=== PATIENT | female | born 1975 | race Caucasian/White ===

== ENCOUNTER 2017-05-06 13:01 | Emergency (ER) | payer BC ==
[~2017-05-06] VITALS: Ht 154.9 cm; Wt 71.5 kg
[~2017-05-06 13:01] MED LIST: BENTYL10 MG PO; CIPRO500 MG PO; DIFLUCAN150 MG PO; DILAUDID2 MG PO; MIRALAX255 GM PO; MOTRIN800 MG PO; NORCO 5/3251 TABLET PO; PERCOCET 5/31 TABLET PO; SYNTHROID88 MCG PO; ZOFRAN ODT8 MG PO; ZOFRAN4 MG PO
[2017-05-06 13:36] LABS: ADD MIUA? YES; BILIRUBIN NEGATIVE; BLOOD NEGATIVE; COLOR YELLOW ((YELLOW)); GLUCOSE (STRIP) NEGATIVE; KETONES NEGATIVE; LEUKOCYTES NEGATIVE; NITRITE NEGATIVE; PROTEIN (STRIP) NEGATIVE; SPECIFIC GRAVITY 1.009 (1.000-1.030); UROBILINOGEN 0.2 MG/DL (0.2-1.0)
[2017-05-06 13:39] LABS: BACTERIA 2+ /HPF; EPITHELIAL CELLS 1+ /HPF; MUCUS NONE SEEN /LPF; RED BLOOD CELLS NONE SEEN /HPF (0-5); UCUL ADDED? YES; WHITE BLOOD CELLS 0-5 /HPF (0-5)
[2017-05-06 15:36] LABS: EOSINOPHIL (%) 1.3 % (0-5); EOSINOPHIL COUNT 0.1 K/uL (0-0.3); HEMATOCRIT 39.3 % (36.0-46.0); IMMATURE GRANULOCYTE (%) 0.4 % (0.0-0.7); LYMPHOCYTE COUNT 1.4 K/uL (1.0-2.8); MCHC 34.6 G/DL (30.0-36.0); MCV 89.5 FL (83-99); MEAN PLAT.VOLUME 10.2 uM^3 (9.5-12.4); MONOCYTE (%) 5.8 % (3-12); MONOCYTE COUNT 0.5 K/uL (0-0.8); NEUTROPHIL (%) 75.3 % (45-76); PLATELET COUNT 298 K/uL (156-360); RBC DIS.WIDTH-CV 12.3 % (11.8-14.6); RBC DIS.WIDTH-SD 40.3 % (39-53); RED BLOOD COUNT 4.39 M/uL (3.80-5.20)
[2017-05-06 15:44] LABS: CHLORIDE 106 mEq/L (99-109); POTASSIUM 3.9 mEq/L (3.7-5.4); SODIUM 137 mEq/L (136-147)
[2017-05-06 15:46] LABS: GLUCOSE 92 mg/dL (70-99)
[2017-05-06 15:48] LABS: ANION GAP 8 MEQ/L (2-14); TOTAL BILIRUBIN 0.4 mg/dL (0.0-1.0)
[2017-05-06 15:50] LABS: ALKALINE PHOSPHATASE 76 IU/L (3-129); GFR ESTIMATE (CALCULATED) > 59 mL/min/
[2017-05-06 15:51] LABS: UREA NITROGEN (BUN) 9 mg/dL (9-23)
[2017-05-06] MEDS ORDERED: NORCO 5/3251 TABLET PO (16:08)
[2017-05-06] MEDS ORDERED: KEFLEX500 MG PO (16:08)
[2017-05-06] MEDS ORDERED: DIFLUCAN150 MG PO (16:16)
[2017-05-06 16:50] VITALS: BP 100/74
== END 2017-05-06 16:51 | disposition home or self-care (01) ==
LOC: EME 13:01
PROVIDERS: Physician Assistant
DX: R30.0 Dysuria (principal); E03.9 Hypothyroidism, unspecified; Z90.710 Acquired absence of both cervix and uterus; Z88.2 Allergy status to sulfonamides
CPT/HCPCS: 80053; 81003; 85025; 87086; 99281; 99284; J1885

== ENCOUNTER 2018-04-16 12:35 | Inpatient (IN) | payer OTHER ==
[~2018-04-16] VITALS: Ht 157.5 cm; Wt 52.2 kg
[~2018-04-16 12:35] MED LIST changes: +KEFLEX500 MG PO
[2018-04-16 14:36] LABS: HEMOGLOBIN 11.7 G/DL (11.9-15.5); MCH 30.2 PG (29.0-34.0); MCHC 34.4 G/DL (30.0-36.0); MCV 87.9 FL (83-99); PLATELET COUNT 241 K/uL (156-360); RBC DIS.WIDTH-CV 13.5 % (11.8-14.6); RBC DIS.WIDTH-SD 43.3 % (39-53); RED BLOOD COUNT 3.87 M/uL (3.80-5.20); WHITE BLOOD COUNT 5.3 K/uL (4.1-10.2)
[2018-04-16 14:38] LABS: AMPHETAMINE NEGATIVE (500 ng/mL); BENZODIAZEPINES PRESUMPTIVE POSITIVE (150 ng/mL); COCAINE PRESUMPTIVE POSITIVE (150 ng/mL); METHAMPHETAMINE NEGATIVE (500 ng/mL); OPIATES (MORPHINE) NEGATIVE (100 ng/mL); PHENCYCLIDINE NEGATIVE (25 ng/mL); THC CANNABINOIDS NEGATIVE (50 ng/mL)
[2018-04-16 14:39] LABS: BARBITURATES NEGATIVE (200 ng/mL); BUPRENORPHINE PRESUMPTIVE POSITIVE (10 ng/mL); METHADONE PRESUMPTIVE POSITIVE (200 ng/mL); OXYCODONE NEGATIVE (100 ng/mL); PROPOXYPHENE NEGATIVE (300 ng/mL); TRICYCLIC ANTIDEPRESSANTS NEGATIVE (300 ng/mL)
[2018-04-16 14:47] LABS: CHLORIDE 104 mEq/L (99-109); POTASSIUM 3.1 mEq/L (3.7-5.4)
[2018-04-16 14:48] LABS: SODIUM 140 mEq/L (136-147)
[2018-04-16 14:50] LABS: GLUCOSE 83 mg/dL (70-99); TOTAL PROTEIN 6.8 g/dL (6.4-8.3)
[2018-04-16 14:52] LABS: TOTAL BILIRUBIN 0.7 mg/dL (0.0-1.0)
[2018-04-16 14:53] LABS: ALKALINE PHOSPHATASE 62 IU/L (3-129); SERUM ETHYL ALCOHOL < 10 mg/dL
[2018-04-16 14:54] LABS: CREATININE 0.8 mg/dL (0.6-1.3); GFR ESTIMATE (CALCULATED) > 59 mL/min/
[2018-04-16 14:55] LABS: AST (GOT) 18 IU/L (2-34); UREA NITROGEN (BUN) 12 mg/dL (9-23)
[2018-04-16 14:56] LABS: ALT (GPT) 11 IU/L (3-49)
[2018-04-16 15:03] LABS: QUANTITATIVE HCG < 4.0 MIU/ML
[2018-04-16 15:14] LABS: BENZODIAZEPINES, URINE SCREEN Negative (200 ng/mL)
[2018-04-16 16:13] LABS: THYROTROPIN (TSH) 1.3 MIU/L (0.4-5.5)
[2018-04-16] MEDS ORDERED: ATIVAN0.5 MG PO (22:17)
[2018-04-16] MEDS ORDERED: WELLBUTRIN100 MG PO (22:18)
[2018-04-16] MEDS ORDERED: GABAPENTIN100 MG PO (22:19)
[2018-04-16 22:40] VITALS: BP 104/66
[2018-04-16 23:04] VITALS: BP 104/66
[2018-04-17 07:49] VITALS: BP 111/54
== END 2018-04-17 12:04 | disposition home or self-care (01) | DRG 897 ==
LOC: EME 12:35 → EDOF 19:21 → 1WEST 19:21 → ENRESERV 21:32 → 1WEST 22:28
PROVIDERS: Emergency Medicine
DX: F11.259 Opioid dependence with opioid-induced psychotic disorder, unspecified (principal); F14.10 Cocaine abuse, uncomplicated; F13.10 Sedative, hypnotic or anxiolytic abuse, uncomplicated; F41.9 Anxiety disorder, unspecified; R63.4 Abnormal weight loss; E03.9 Hypothyroidism, unspecified; G56.00 Carpal tunnel syndrome, unspecified upper limb; Z79.899 Other long term (current) drug therapy; Z90.710 Acquired absence of both cervix and uterus
CPT/HCPCS: 80053; 84443; 84702; 84999; 85027; 90839; 99281; 99285; G0480